=== PATIENT | female | born 1995 | race Caucasian/White ===

== ENCOUNTER 2016-10-24 12:27 | Emergency (ER) | payer OTHER ==
[2016-10-24 12:38] VITALS: BP 121/59
--- OUTSIDE RECORDS SUMMARY | 2016-10-24 14:14 | XMS REPORT | Continuity of Care Document ---
:1995 Author Organization [facility] ([facility]) Address [address] [place] [address] Phone [phone] Care Team Providers Name Role Phone Angeles Parker Primary Care Provider [phone] Source Comments This disclosure is being made pursuant to the Care Everywhere program, applicable federal and state laws, and may not contain all informaitonavailable regarding this patient.[facility] ([facility]) Active Allergies and Adverse Reactions No Known Allergies Current Medications Prescription Sig. Disp. Refills Start Date End Date Status norgestrel-ethinyl Take 1 tablet by 28 tablet 2 03/23/2016 Active estradiol (OVRAL) mouth daily. tablet amLODIPine 5 mg tablet Take 3 tablets 95 tablet 6 05/19/2016 Active (15 mg total) by mouth daily. 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 Atelectasis, left lower lobe with compensatory hyperexpansion of of left 12/07 upper lobe Resolved Problems Problem Noted Date Resolved Date White coat hypertension 03/22/2012 08/28/2012 Hypokalemia 01/03/2010 01/13/2012 Collapse of left lung 01/02/2010 01/12/2012 Acute blood loss anemia 12/31/2009 01/13/2012 S/P thoracotomy 12/30/2009 01/12/2012 Cough 12/07/2009 01/13/2012 Fever of unknown origin 12/07/2009 01/12/2012 Bronchiectasis in atelectatic left lower lobe 12/07/2009 01/12/2012 Immunizations Name Dates Previously Given Next Due Influenza, quadrivalent PF 05/19/2016 Social History Tobacco Use Types Packs/Day Years Used Date Never Smoker Smokeless Tobacco: Never Used Tobacco Cessation:Counseling Given: Yes Comments:no second hand smoke exposure Alcohol Use Drinks/Week oz/Week Comments No Last Filed Vital Signs Vital Sign Reading Time Taken Blood Pressure 122/78 05/19/2016 12:53 PM [employer] Pulse 77 05/19/2016 11:55 AM [employer] Temperature 36.9 C (98.4 F) 05/19/2016 11:55 AM [employer] Respiratory Rate 18 05/19/2016 11:55 AM [employer] Height 1.435 m (4' 8.5") 05/19/2016 11:55 AM [employer] Weight 52.15 kg (114 lb 15.5 oz) 05/19/2016 11:55 AM [employer] Body Mass Index 25.33 05/19/2016 11:55 AM [employer] Oxygen Saturation 99% 04/15/2013 11:30 AM [employer] Plan of Care Health Maintenance Due Date Last Done Comments Hepatitis B Vaccine (1 of 3 - 1995 Primary Series) HPV Vaccine (1 of 3 - Female 08/08/2006 3 Dose Series) Tdap Vaccine 08/08/2006 Meningococcal Vaccine (1 of 2011 1) Cervical Cancer Screening 08/08/2013 Lipid Disorder Screening 08/08/2013 MMR Vaccine 08/08/2013 Td Vaccine 08/08/2013 Varicella Vaccine (1 of 2 - 08/08/2013 Adult - No Evidence of Immunity) Influenza Vaccine: Seasonal Addressed 05/19/2016, Overridden with the 04/16/2015 intention of not (Declined) completing the topic Results from Last 3 Months Not on file
[2016-10-24] MEDS ORDERED: AMOX TR/POTASSIUM CLAVULANATE 875 MG TABLET PO ONE (14:25)
[2016-10-24] MEDS ORDERED: AMOX TR/POTASSIUM CLAVULANATE 875 MG TABLET ONE (14:31)
--- NOTE | 2016-10-24 14:31 | ERNOTE ---
ENT HPI Date of Service: 10/24/16 Presenting Symptoms: other - L ear pain Time Seen by Provider: 10/24/16 14:06 Source: patient Exam Limitations: no limitations - Immun/Allergies/Home Medications Immunizations: IMMUNIZATION HX Immunizations Up to Date No History of Influenza Vaccine No Hx Pneumococcal Vaccination No Allergies/Adverse Reactions: Allergies Allergy/AdvReac Type Severity Reaction Status Date / Time No Known Allergies Allergy Verified 07/11/15 09:27 Home Medications: HOME MEDICATIONS Amox Tr/Potassium Clavulanate [Augmentin 875-125 Tablet] 875 mg PO Q12H #20 tab 10/24/16 [Last Taken Unknown] - History of Present Illness Narrative: Pt. comes in with c/o L ear pain for three days. Pt. states that she has had some mild nasal congestion for a week as well. Pt. denies any fever. SOB, cough , NVD, prehospital treatment, alleviating factors, or aggravating factors. Review of Systems - Review of Systems Constitutional: Present: no symptoms reported. Absent: recent illness, fever, chills, weakness, fatigue, malaise EYE: Present: no symptoms reported ENT: Present: ear pain - L, nose congestion Respiratory: Present: no symptoms reported. Absent: shortness of breath, cough , wheezing Cardiology: Present: no symptoms reported. Absent: chest pain, palpitations, edema Gastrointestinal/Abdominal: Present: no symptoms reported. Absent: nausea, vomiting, diarrhea Genitourinary: Present: no symptoms reported Musculoskeletal: Present: no symptoms reported. Absent: back pain, joint pain Skin: Present: no symptoms reported All Other Systems: All systems neg except as marked - Patient's Past Medical History Patient History - Medical: No pertinent hx Patient History - Cardiac/Respiratory: No pertinent hx Patient History - Cancer: No Hx of Cancer Patient History - Surgical Procedures: Pneumothorax, Other Patient History - Other: None - Social History Living Situations: home Abuse History: No History of abuse Psych History: No pertinent hx Smoking Status: Never smoker Have you smoked in the past 12 months: No Do you dip or chew tobacco: No Alcohol Use: none Drug Use: none - Immunizations Immunizations Up to Date: No Hx Pneumococcal Vaccination: No History of Influenza Vaccine: No Physical Exam - Physical Exam General Appearance: Present: wd/wn, alert, no apparent distress Eye Exam: Normal inspection: bilateral, PERRL: bilateral, EOMI: bilateral Ears, Nose, Throat: Present: normal except -, abnormal TM (L) - erythema and edema, nasal congestion, normal pharynx. Absent: sinus pain/drainage Neck: Present: normal inspection, nontender. Absent: lymphadenopathy (R), lymphadenopathy (L) Respiratory: Present: no respiratory distress, normal breath sounds, no accessory muscle use, chest nontender, lungs clear Cardiovascular/Chest: Present: regular rate, rhythm, no murmur, normal peripheral pulses Extremity Exam: Present: normal inspection Neurological Exam: Present: alert, oriented, normal mood/affect, no motor/ sensory deficits Skin Exam: Present: normal color, warm/dry. Absent: pallor, skin rash ED Progress - Vital Signs Patient's Vital Signs:: I have reviewed the patient's vital signs. Vital Signs: Vital Signs 10/24/16 12:34 Temperature 36.5 C Pulse Rate 95 Respiratory 16 Rate Blood Pressure 121/59 O2 Sat by Pulse 97 Oximetry - Progress/Reassessment Chief Complaint: Earache Departure Clinical Impression: Otitis media Qualifiers: Otitis media type: suppurative Laterality: left Chronicity: acute Recurrence: recurrent Spontaneous tympanic membrane rupture: without spontaneous rupture Qualified Code(s): H66.005 - Acute suppurative otitis media without spontaneous rupture of ear drum, recurrent, left ear - Departure Disposition: Home self-care Condition: Good Instructions: Otitis Media With Effusion Additional Instructions: Please follow up with primary provider in 2-3 days. Referrals: Angeles Parker MD [Primary Care Provider] - Prescriptions: Amox Tr/Potassium Clavulanate [Augmentin 875-125 Tablet] 875 mg PO Q12H #20 tab
== END 2016-10-24 14:33 | disposition home or self-care (01) ==
LOC: ER 12:27
DX: H66.005 Acute suppurative otitis media without spontaneous rupture of ear drum, recurrent, left ear (principal)